=== PATIENT | female | born 1985 | race Two or more races ===

== ENCOUNTER 2016-07-25 14:20 | Emergency (ER) | payer BC ==
--- NOTE | 2016-07-25 14:27 | PDOC ---
Attending Attestation - Resident Resident Name: Daniela Bey - ED Attending Attestation I have performed the following: I have examined & evaluated the patient, The case was reviewed & discussed with the resident, I agree w/resident's findings & plan, Exceptions are as noted - HPI HPI: 07/25/16 14:31 The patient is a 30 year old female with no significant past medical history who presets with several days of bilateral lower back pain. The pain started after she was vigorously stretching. It is mild. It is bilateral and laterally located, without any midline pain. It is worsened by movement or palpation. She denies fever, urinary symptoms, vaginal discharge or bleeding. She denies rash. She denies weakness or paresthesias. She denies bladder or bowel incontinence or retention. 07/25/16 14:46 - Physicial Exam PE: 07/25/16 14:32 She is well appearing and in no acute distress Abdomen is non-tender She has reproducible bilateral lower lumbar paraspinal muscle tenderness No lower extremity motor or sensory deficits 07/25/16 14:46 - Medical Decision Making 07/25/16 14:32 She is well appearing and in no acute distress Her clinical presentation is most consistent with musculoskeletal back pain Clinical impression: Musculoskeletal low back pain
[2016-07-25 14:33] VITALS: BP 127/77; PULSE 87; TEMP 98.2; BMI 30.7
--- NOTE | 2016-07-25 14:51 | PDOC ---
History of Present Illness - General Chief Complaint: Back Pain Stated Complaint: LOW BACK PAIN Time Seen by Provider: 07/25/16 14:27 History Source: Patient Exam Limitations: No Limitations - History of Present Illness Initial Comments: 07/25/16 14:46 This is a previously healthy 30 yo F who presents with R sided back pain that started 3 days ago as she was stretching. the pain is intermittant and positional. it is elicited by deed inspiration. She had not had this pain before. She denies f/c, h/a, n/v, numbness, paresthesia, weakness, loss of bowel fxn, abd pain, dysuria, constipation, diarrhea, vaginal bleeding. Her LMP was a month ago. She has not had any surgeries. She denies family hx of gi, cardiac, gu, or neuro illness. Past History - Past Medical History Allergies/Adverse Reactions: Allergies Allergy/AdvReac Type Severity Reaction Status Date / Time No Known Allergies Allergy Verified 07/25/16 14:31 Home Medications: Ambulatory Orders Ibuprofen [Advil -] 600 mg PO TID PRN 07/25/16 Naproxen Sodium [Aleve] 220 mg PO BID #30 tablet 07/25/16 - Psycho/Social/Smoking Cessation Hx Anxiety: No Suicidal Ideation: No Smoking History: Current every day smoker Number of Cigarettes Smoked Daily: 8 Information on smoking cessation initiated: Yes 'Breaking Loose' booklet given: 07/25/16 Hx Alcohol Use: Yes (SOCIAL) Drug/Substance Use Hx: No Substance Use Type: None Review of Systems - Review of Systems Able to Perform ROS?: Yes Is the patient limited Faroese proficient: No Constitutional: No: Chills, Fever HEENTM: No: Nose Congestion, Throat Pain Respiratory: No: Cough, Orthopnea, Shortness of Breath Cardiac (ROS): No: Chest Pain, Edema, Lightheadedness, Palpitations, Syncope ABD/GI: No: Abdominal Distended, Constipated, Diarrhea, Nausea, Vomiting, Abdominal cramping : No: Dysuria, Flank Pain Musculoskeletal: Yes: Back Pain. No: Joint Pain, Muscle Weakness, Neck Pain Integumentary: No: Pruritus Neurological: No: Headache, Numbness, Paresthesia Psychiatric: No: Anxiety Endocrine: No: Change in Weight Hematologic/Lymphatic: No: Anemia, Blood Clots, Easy Bleeding, Easy Bruising All Other Systems: Reviewed and Negative *Physical Exam - Vital Signs Last Vital Signs Temp Pulse Resp BP Pulse Ox 98.2 F 87 15 127/77 100 07/25/16 14:26 07/25/16 14:26 07/25/16 14:26 07/25/16 14:26 07/25/16 14:26 - Physical Exam Comments: 07/25/16 14:51 GENERAL: NAD, AAOx3 HEENT: normocephalic, atraumatic, PERRLA EOMI, sclera anicteric, conjunctiva clear CV: RRR S1S2 PULM: CTA b/l GI: soft, nontender, normoactive bowel sounds. no mass SKIN: no lesions Musculoskeletal: mild tenderness over R paraspinal area at level of ribs 5-7. Neuro: strength 5/5 in all extremities, sensation intact 07/25/16 14:52 Medical Decision Making - Medical Decision Making 07/25/16 14:53 Patient presents with clinical picture most consistent with muscle strain. soft tissue OMM performed imaging and lab work not indicated recommend outpatient aleve, salt bath, icy-hot. *DC/Admit/Observation/Transfer Diagnosis at time of Disposition: Muscle strain - Discharge Dispostion Disposition: HOME Condition at time of disposition: Good Admit: No - Prescriptions Prescriptions: Naproxen Sodium [Aleve] 220 mg PO BID #30 tablet - Patient Instructions Additional Instructions: Your back is due to muscle strain. We recommend warm bath, icy-hot and aleve (sent to your pharmacy, also available over the counter) twice a day. Aleve takes about 3 days to start working. Avoid strenuous physical activity until pain resolves. Return to ER if symptoms worsen.
== END 2016-07-25 15:00 | disposition home or self-care (01) ==
LOC: FER 14:20
DX: S29.012A Strain of muscle and tendon of back wall of thorax, initial encounter (principal); X58.XXXA Exposure to other specified factors, initial encounter; Y93.89 Activity, other specified; Y92.9 Unspecified place or not applicable; F17.210 Nicotine dependence, cigarettes, uncomplicated
CPT/HCPCS: 99282-25